=== PATIENT | female | born 1980 | race Caucasian/White ===

== ENCOUNTER 2023-11-24 08:22 | Day surgery (SDC) | payer OTHER ==
[~2023-11-24] VITALS: Ht 152.4 cm; Wt 59.9 kg
[~2023-11-24 08:22] MED LIST: ACYCLOVIR400 MG PO; FLUOXETINE HCL20 M2 PO; Lactated Ringer's 0 ML IV ONE; PROP10 PO
[2023-11-24] MEDS ORDERED: CeFAZolin Sodium 2,000 MG VIAL ONE (08:51)
[2023-11-24] MEDS ORDERED: NS 50 ML IV ONE (08:51)
[2023-11-24] MEDS ORDERED: Lactated Ringer's 1,000 ML IV ONE ×2 (08:51→08:55)
--- NOTE | 2023-11-24 09:03 | NUR ---
11/24/23 0903 Dary Velazquez PT COMFORTABLE IN BED. CALL LIGHT WITHIN REACH. BED IN LOWEST POSITION.
[2023-11-24] MEDS ORDERED: Ropivacaine 0.5% HCl/Pf 5 MG/ML 20ML VIAL ONE (09:51)
[2023-11-24] MEDS ORDERED: propofoL 20 ML IV ONE (10:09)
[2023-11-24] MEDS ORDERED: FentaNYL Citrate 50 MCG/ML 2 ML Injection ONE ×2 (10:09→10:59)
[2023-11-24] MEDS ORDERED: Ondansetron HCl 2 MG / ML 2ML Vial ONE (10:13)
[2023-11-24] MEDS ORDERED: Dexamethasone Sod Phos 10 MG/ML 1ML VIAL ONE (10:13)
[2023-11-24] MEDS ORDERED: Phenylephrine HCl 100 MCG/ML-NS 10MLSYR (1MG/10ML) ONE (10:15)
[2023-11-24] MEDS ORDERED: Ketorolac Tromethamine 30mg Vial ONE (10:15)
[2023-11-24] MEDS ORDERED: EPINEPhrine HCl 1 MG/ML 1ML Amp XX ONE (10:32)
--- NOTE | 2023-11-24 10:33 | NUR ---
11/24/23 1033 Luther Gerardo 0.1ML OF EPI 1MG/ML ADDED TO 20ML OF ROPIVICAINE 0.5% TO CREATE A LOCAL SOLUTION OF ROPIVICAINE 0.5% W/EPI 1:200,000.
--- NOTE | 2023-11-24 11:08 | NUR ---
11/24/[address] CO PAIN 6-12/16. FENTANYL 25MCG WAS GIVEN. PT VITALS ARE VERY GOOD. BP A LITTLE ELEVATED FROM ADMIT, BUT STILL WNL.
--- NOTE | 2023-11-24 11:31 | NUR ---
11/24/[address] CURRENTLY PAIN 3-09/16- SMALL THROBBING BUT MUCH LESS
[2023-11-24 11:33] VITALS: BP 115/84
[2023-11-24] MEDS ORDERED: HYDROcodone 5-APAP 325 TAB ONE (11:33)
== END 2023-11-24 12:05 | disposition home or self-care (01) ==
LOC: ORSCSDS 08:22
PROVIDERS: Orthopaedic Surgery
PROC: 01N50ZZ Release Median Nerve, Open Approach (ICD-10-PCS; principal; 2023-11-24 09:45)
PROC: 0LN70ZZ Release Right Hand Tendon, Open Approach (ICD-10-PCS; principal; 2023-11-24 09:45)
DX: G56.01 Carpal tunnel syndrome, right upper limb (principal); M65.341 Trigger finger, right ring finger; M65.331 Trigger finger, right middle finger; K21.9 Gastro-esophageal reflux disease without esophagitis; Z79.899 Other long term (current) drug therapy
CPT/HCPCS: A9270; J0171; J0690; J1100; J1885; J2371; J2405; J2704; J2795; J3010; J7120

== ENCOUNTER → 2023-12-29 | Outpatient (CLI) | payer OTHER ==
[~2023-12-29] MED LIST changes: -Lactated Ringer's 0 ML IV ONE
[2023-12-29 19:43] LABS: BASOPHILS ABSOLUTE AUTO 0.06 K/mm3 (0.00-0.23); BASOPHILS PERCENT AUTO 1 % (0-2); EOSINOPHILS ABSOLUTE AUTO 0.51 K/mm3 (0.00-0.68); EOSINOPHILS PERCENT AUTO 6 % (0-6); Hematocrit 38.3 % (33.0-51.0); Hemoglobin 13.5 g/dL (11.5-16.0); IMMATURE GRAN ABSOLUTE AUTO 0.02 K/mm3 (0.00-0.10); IMMATURE GRAN PERCENT AUTO 0 % (0-1); LYMPHOCYTES ABSOLUTE AUTO 2.02 K/mm3 (0.84-5.20); LYMPHOCYTES PERCENT AUTO 22 % (21-46); MONOCYTES ABSOLUTE AUTO 0.57 K/mm3 (0.16-1.47); MONOCYTES PERCENT AUTO 6 % (4-13); Mean Corpuscular HGB 31.6 pg (26.0-34.0); Mean Corpuscular HGB Conc 35.2 g/dL (31.5-36.5); Mean Corpuscular Volume 90 fL (80-100); Mean Platelet Volume 9.6 fL (9.1-12.4); NEUTROPHILS ABSOLUTE AUTO 5.94 K/mm3 (1.96-9.15); NEUTROPHILS PERCENT AUTO 65 % (41-73); Platelet Count 294 K/mm3 (150-400); RDW Coefficient Variation 11.6 % (11.7-14.2); RDW Standard Deviation 37.8 fL (35.1-46.3); Red Blood Cell Count 4.27 M/mm3 (3.80-5.20); White Blood Cell Count 9.12 K/mm3 (4.00-11.30)
[2023-12-29 19:55] LABS: Albumin/Globulin Ratio 1.1 (0.8-1.8); Bilirubin, Total 1.1 mg/dL (0.1-1.0); Calcium, Blood 8.9 mg/dL (8.5-10.1); Creatinine, Blood 0.79 mg/dL (0.40-1.00); Globulin, Blood 3.6 g/dL (2.2-4.0); Potassium, Blood 3.6 mmol/L (3.5-5.5); Total Protein, Blood 7.6 g/dL (6.4-8.2)
== END | disposition home or self-care (01) ==
LOC: LAB 18:53 → LAB SHORT 18:53
PROVIDERS: Family Medicine
DX: Z51.81 Encounter for therapeutic drug level monitoring (principal); Z79.899 Other long term (current) drug therapy
CPT/HCPCS: 80053; 85025

== ENCOUNTER 2024-02-01 22:33 | Emergency (ER) | payer OTHER ==
[~2024-02-01] VITALS: Ht 152.4 cm; Wt 61.2 kg
[2024-02-01] MEDS ORDERED: FentaNYL Citrate 50 MCG/ML 2 ML Injection IV ONE (22:40)
[2024-02-01] MEDS ORDERED: NS 1,000 ML IV SCH (22:45)
[2024-02-01 22:54] LABS: BASOPHILS ABSOLUTE AUTO 0.06 K/mm3 (0.00-0.23); BASOPHILS PERCENT AUTO 0 % (0-2); EOSINOPHILS ABSOLUTE AUTO 0.05 K/mm3 (0.00-0.68); EOSINOPHILS PERCENT AUTO 0 % (0-6); Hematocrit 40.8 % (33.0-51.0); Hemoglobin 14.2 g/dL (11.5-16.0); IMMATURE GRAN ABSOLUTE AUTO 0.12 K/mm3 (0.00-0.10); IMMATURE GRAN PERCENT AUTO 1 % (0-1); LYMPHOCYTES ABSOLUTE AUTO 1.29 K/mm3 (0.84-5.20); LYMPHOCYTES PERCENT AUTO 7 % (21-46); MONOCYTES ABSOLUTE AUTO 1.51 K/mm3 (0.16-1.47); MONOCYTES PERCENT AUTO 8 % (4-13); Mean Corpuscular HGB Conc 34.8 g/dL (31.5-36.5); Mean Corpuscular Volume 92 fL (80-100); NEUTROPHILS ABSOLUTE AUTO 16.14 K/mm3 (1.96-9.15); NEUTROPHILS PERCENT AUTO 84 % (41-73); Platelet Count 229 K/mm3 (150-400); RDW Coefficient Variation 11.3 % (11.7-14.2); RDW Standard Deviation 38.6 fL (35.1-46.3); Red Blood Cell Count 4.44 M/mm3 (3.80-5.20); White Blood Cell Count 19.17 K/mm3 (4.00-11.30)
[2024-02-01 23:13] LABS: Albumin, Blood 3.6 g/dL (3.4-5.0); Albumin/Globulin Ratio 0.9 (0.8-1.8); Bilirubin, Total 1.5 mg/dL (0.1-1.0); Bun/Creatinine Ratio 9.3 (12.0-20.0); Creatinine, Blood 0.75 mg/dL (0.40-1.00); Globulin, Blood 4.2 g/dL (2.2-4.0); Potassium, Blood 4.1 mmol/L (3.5-5.5); Total Protein, Blood 7.8 g/dL (6.4-8.2)
[2024-02-01] MEDS ORDERED: CefTRIAXone Sodium 1,000 MG in NS 50 ML IV ONE (23:55)
[2024-02-02 00:27] LABS: Source, Urine Clean Catch
[2024-02-02 00:30] LABS: Bilirubin, Urine Neg (Neg); Blood, Urine 4+ (Neg); Glucose Qualitative, Urine Neg (Neg); Ketones, Urine 4+ (Neg); Leukocyte Esterase, Urine 2+ (Neg); Nitrite, Urine Pos (Neg); Protein, Urine 2+ (Neg); Specific Gravity, Urine 1.015 (1.003-1.022); Urobilinogen, Urine NORM (Normal)
[2024-02-02 00:42] LABS: Appearance, Urine Cloudy (Clear); Color, Urine Yellow (P-Yellow)
[2024-02-02 00:45] LABS: Amorphous Light (0-Heavy); Bacteria Many /hpf; Red Blood Cells, Urine 0-2 /hpf (0-2); Squamous Epithelial Cells Rare /hpf (Few); White Blood Cells, Urine 25-50 /hpf (0-5)
[2024-02-02] MEDS ORDERED: NS 50 ML IV ONE (00:52)
[2024-02-02] MEDS ORDERED: CefTRIAXone 1000 MG Vial ONE (00:52)
[2024-02-02] MEDS ORDERED: ONDA4ODT MM (02:26)
[2024-02-02] MEDS ORDERED: CEFD300 PO (02:26)
[2024-02-02 02:30] VITALS: BP 100/72
[2024-02-02] MEDS ORDERED: RX Prepack 2 Tabs Ondansetron ODT 4MG UD ONE (02:30)
== END 2024-02-02 02:46 | disposition home or self-care (01) ==
LOC: ER 22:33
PROVIDERS: Student in an Organized Health Care Education/Training Program
DX: N12 Tubulo-interstitial nephritis, not specified as acute or chronic (principal); D72.829 Elevated white blood cell count, unspecified; Z79.899 Other long term (current) drug therapy
CPT/HCPCS: 74177; 80053; 81001; 83690; 84703; 85025; 87077; 87086; 87186; 93005; 93010; 96361; 96365-59; 96375; 99284-25; A9270; J0696; J3010; J7030; Q9967

== ENCOUNTER → 2024-03-15 | Outpatient (CLI) | payer OTHER ==
[~2024-03-15] MED LIST changes: +CEFD300 PO; +ONDA4ODT MM
== END | disposition home or self-care (01) ==
LOC: LAB 18:46 → LAB SHORT 18:46
DX: N39.0 Urinary tract infection, site not specified (principal)
CPT/HCPCS: 87077; 87086; 87186

== ENCOUNTER → 2024-03-19 | Outpatient (CLI) | payer OTHER | LOC: LAB SHORT 17:16 → LAB 17:16 | DX: N12 Tubulo-interstitial nephritis, not specified as acute or chronic (principal) | CPT/HCPCS: 87086 ==

== ENCOUNTER → 2024-04-08 | Outpatient (CLI) | payer OTHER ==
[2024-04-13 22:22] LABS: C. TRACHOMATIS BY TMA,THINPREP Positive (Negative); N. GONORRHOEAE BY TMA,THINPREP Negative (Negative); SPECIMEN SOURCE Cervical
== END | disposition home or self-care (01) ==
LOC: LAB 08:00 → LAB SHORT 08:00
PROVIDERS: Nurse Practitioner Family
DX: Z12.4 Encounter for screening for malignant neoplasm of cervix (principal)
CPT/HCPCS: 87491; 87591